=== PATIENT | male | born 1940 | race Caucasian/White ===

== ENCOUNTER 2021-04-21 10:28 | Outpatient (REF) | payer MEDICARE, SELFPAY ==
[2021-04-21 13:34] LABS: MANUAL DIFF FLAG NO
[2021-04-21 13:42] LABS: Basophils Absolute Auto 0.1 X10*3/uL (0.0-0.2); Basophils Percent Auto 0.9 % (0-2); Eosinophils Absolute Auto 0.2 X10*3/uL (0.0-0.4); Eosinophils Percent Auto 3.9 % (0-4); Hematocrit 44.6 % (42-52); Imm Gran Abs Auto 0.01 X10*3/uL (0.00-0.03); Imm Gran Pct Auto 0.2 % (0.0-0.4); Lymphocytes Absolute Auto 1.2 X10*3/uL (1.2-4.9); Lymphocytes Percent Auto 21.3 % (20-40); Mean Corpuscular HGB Conc 33.6 g/dl (31.0-36.0); Mean Corpuscular Hemoglobin 30.1 pg (27.0-33.0); Mean Corpuscular Volume 89.4 fL (80-98); Mean Platelet Volume 9.8 fL (9.4-12.4); Monocytes Absolute Auto 0.7 X10*3/uL (0.1-1.2); Monocytes Percent Auto 11.9 % (2-11); Neutrophils Absolute Auto 3.5 X10*3/uL (2.0-8.3); Neutrophils Percent Auto 61.8 % (45-73); Platelet Count 289 X10*3/uL (160-400); Red Blood Count 4.99 X10*6/uL (4.60-5.80); Red Cell Distribution Width 13.4 % (11.0-16.0); White Blood Count 5.6 X10*3/uL (4.8-10.8)
[2021-04-21 14:11] LABS: Alanine Aminotransferase 33 U/L (0-40); Albumin Level 4.2 g/dL (3.5-5.0); Alkaline Phosphatase 118 U/L (39-117); Anion Gap 13 (12-20); Aspartate Amino Transferase 36 U/L (5-37); Bilirubin Total 0.9 mg/dL (0.0-1.0); Blood Urea Nitrogen 25 mg/dL (9-16); Calcium 9.1 mg/dL (8.4-10.2); Carbon Dioxide 27 mmol/L (22-29); Chloride 105 mmol/L (96-108); Cholesterol 162 mg/dL; Estimated Glomerular Filt Rate > 60; Glucose Fasting 95 mg/dL (60-99); HDL Cholesterol 52 mg/dL; LDL Cholesterol Calculated 97 mg/dl; Sodium 141 mmol/L (135-145); Total Protein 6.7 g/dL (6.5-8.0); Triglycerides 66 mg/dL
[2021-04-21 14:33] LABS: TSH reflex Free T4 2.48 uIU/mL (0.32-4.0)
== END 2021-04-21 10:29 | disposition home or self-care (01) ==
LOC: HO.10HDL 10:28
PROVIDERS: Visit Provider Nurse Practitioner Family
DX: Z13.1 Encounter for screening for diabetes mellitus (principal); E78.5 Hyperlipidemia, unspecified; I10 Essential (primary) hypertension
CPT/HCPCS: 36415; 80053; 80061; 84443; 85025

== ENCOUNTER 2021-08-10 11:07 | Outpatient (REF) | payer MEDICARE, SELFPAY ==
[2021-08-10 13:40] LABS: MANUAL DIFF FLAG NO
[2021-08-10 13:50] LABS: Basophils Absolute Auto 0.1 X10*3/uL (0.0-0.2); Basophils Percent Auto 0.8 % (0-2); Eosinophils Absolute Auto 0.2 X10*3/uL (0.0-0.4); Hematocrit 44.6 % (42-52); Imm Gran Abs Auto 0.02 X10*3/uL (0.00-0.03); Imm Gran Pct Auto 0.3 % (0.0-0.4); Lymphocytes Absolute Auto 1.3 X10*3/uL (1.2-4.9); Lymphocytes Percent Auto 20.7 % (20-40); Mean Corpuscular HGB Conc 33.6 g/dl (31.0-36.0); Mean Corpuscular Hemoglobin 29.9 pg (27.0-33.0); Mean Corpuscular Volume 88.8 fL (80-98); Mean Platelet Volume 9.5 fL (9.4-12.4); Monocytes Absolute Auto 0.6 X10*3/uL (0.1-1.2); Monocytes Percent Auto 9.4 % (2-11); Neutrophils Percent Auto 65.8 % (45-73); Platelet Count 262 X10*3/uL (160-400); Red Blood Count 5.02 X10*6/uL (4.60-5.80); Red Cell Distribution Width 13.3 % (11.0-16.0); White Blood Count 6.1 X10*3/uL (4.8-10.8)
[2021-08-10 13:58] LABS: Alanine Aminotransferase 28 U/L (0-40); Alkaline Phosphatase 105 U/L (39-117); Anion Gap 14 (12-20); Aspartate Amino Transferase 31 U/L (5-37); Bilirubin Total 0.6 mg/dL (0.0-1.0); Blood Urea Nitrogen 17 mg/dL (9-16); Carbon Dioxide 26 mmol/L (22-29); Chloride 104 mmol/L (96-108); Cholesterol 170 mg/dL; Estimated Glomerular Filt Rate > 60; Glucose Fasting 97 mg/dL (60-99); HDL Cholesterol 45 mg/dL; LDL Cholesterol Calculated 108 mg/dl; Potassium 3.9 mmol/L (3.3-5.1); Sodium 140 mmol/L (135-145); Total Protein 6.4 g/dL (6.5-8.0); Triglycerides 86 mg/dL
[2021-08-10 14:22] LABS: Thyroid Stimulating Hormone 3.82 uIU/mL (0.32-4.0)
== END 2021-08-10 11:08 | disposition home or self-care (01) ==
LOC: HO.10HDL 11:07
PROVIDERS: Visit Provider Internal Medicine
DX: Z00.00 Encounter for general adult medical examination without abnormal findings (principal); E11.9 Type 2 diabetes mellitus without complications; E03.9 Hypothyroidism, unspecified
CPT/HCPCS: 36415; 80053; 80061; 84443; 85025

== ENCOUNTER 2021-08-20 10:16 | Outpatient (REF) | payer MEDICARE, SELFPAY ==
--- NOTE | ~2021-08-20 | XR_ITS ---
EXAMINATION: XR LUMBOSACRAL SPINE CLINICAL INFORMATION: Dorsalgia COMPARISON: None TECHNIQUE: Three views of the lumbosacral spine. FINDINGS: No fracture or subluxation. Mild scoliotic curvature of the spine. Vertebral body height and alignment otherwise maintained. Diffuse disc space narrowing with endplate sclerosis and prominent osteophyte formation. Multilevel vacuum disc phenomenon. Multilevel facet arthropathy. The sacroiliac joints are symmetric. The sacrum appears intact. Nonobstructive bowel gas pattern. 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
== END 2021-08-20 10:17 | disposition home or self-care (01) ==
LOC: HO.XRAY 10:16
PROVIDERS: PCP Internal Medicine; Visit Provider Internal Medicine
DX: M54.9 Dorsalgia, unspecified (principal)
CPT/HCPCS: 72100

== ENCOUNTER 2021-12-29 09:46 | Outpatient (REF) | payer MEDICARE, SELFPAY ==
[2021-12-29 10:38] LABS: MANUAL DIFF FLAG NO
[2021-12-29 10:47] LABS: Basophils Absolute Auto 0.1 X10*3/uL (0.0-0.2); Basophils Percent Auto 1.1 % (0-2); Eosinophils Absolute Auto 0.1 X10*3/uL (0.0-0.4); Eosinophils Percent Auto 2.1 % (0-4); Hematocrit 44.9 % (42.0-52.0); Imm Gran Abs Auto 0.01 X10*3/uL (0.00-0.03); Imm Gran Pct Auto 0.2 % (0.0-0.4); Lymphocytes Absolute Auto 1.1 X10*3/uL (1.2-4.9); Lymphocytes Percent Auto 20.1 % (20-40); Mean Corpuscular HGB Conc 33.4 g/dl (31.0-36.0); Mean Corpuscular Hemoglobin 29.8 pg (27.0-33.0); Mean Corpuscular Volume 89.3 fL (80.0-98.0); Mean Platelet Volume 9.6 fL (9.4-12.4); Monocytes Absolute Auto 0.6 X10*3/uL (0.1-1.2); Neutrophils Absolute Auto 3.5 x10*3/uL (2.0-8.3); Neutrophils Percent Auto 65.5 % (45-73); Platelet Count 229 X10*3/uL (160-400); Red Blood Count 5.03 X10*6/uL (4.60-5.80); White Blood Count 5.3 X10*3/uL (4.8-10.8)
[2021-12-29 11:03] LABS: Alanine Aminotransferase 38 U/L (0-40); Alkaline Phosphatase 98 U/L (39-117); Anion Gap 10 (12-20); Aspartate Amino Transferase 37 U/L (5-37); Bilirubin Total 0.7 mg/dL (0.0-1.0); Blood Urea Nitrogen 26 mg/dL (9-16); Calcium 9.2 mg/dL (8.4-10.2); Carbon Dioxide 29 mmol/L (22-29); Chloride 105 mmol/L (96-108); Cholesterol 154 mg/dL; Estimated Glomerular Filt Rate > 60; Glucose Fasting 103 mg/dL (60-99); HDL Cholesterol 44 mg/dL; LDL Cholesterol Calculated 98 mg/dl; Potassium 3.9 mmol/L (3.3-5.1); Sodium 140 mmol/L (135-145); Total Protein 6.4 g/dL (6.5-8.0); Triglycerides 63 mg/dL
[2021-12-29 11:25] LABS: Thyroid Stimulating Hormone 3.04 uIU/mL (0.32-4.0)
== END 2021-12-29 09:47 | disposition home or self-care (01) ==
LOC: HO.10HDL 09:46
PROVIDERS: Visit Provider Internal Medicine
DX: Z00.00 Encounter for general adult medical examination without abnormal findings (principal); Z13.0 Encounter for screening for diseases of the blood and blood-forming organs and certain disorders involving the immune mechanism
CPT/HCPCS: 36415; 80053; 80061; 84443; 85025

== ENCOUNTER 2022-02-11 14:00 | Outpatient (RCR) | payer MEDICARE, SELFPAY ==
--- NOTE | 2021-12-30 07:59 | MHC.PT.EP ---
[facility] [place] Office [place] Office [place] Office [address] [place] [address] [phone] F: [phone] F: [phone] F: [phone] F: [phone] Physical Therapy Plan of Care Date of Evaluation: Date of Surgery: n/a Diagnosis: Dorsalgia Assessment: Patient is an 81 year old R handed male who presents with s/s consistent with dorsalgia. He does not work but still lives Independently while his family takes care of most of his meal prep. 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 Current impairments include pain, posture, ROM, strength, activity tolerance and functional mobility. Functional limitations include decreased ability to transfer, stand and walk longer than 3 minutes. Patient is motivated with good rehab potential. Skilled PT will address impairments and functional limitations in order to achieve goals. Frequency and Duration: The patient will be seen 2x/week for 5 weeks Short Term Goals: I with HEP - 2 weeks Able to walk > 5 minutes without deteriorating posture - 3 weeks Dog Races Manager Goals: Able to walk > 8 minutes without rest or deteriorating posture - 5 weeks Strength 4/5 grossly in LE - 5 weeks lumbar rotation - 50% without pain - 5 weeks Treatment Plan: Modalities to reduce pain, spasms and effusion. Manual therapy to restore motion and function. Therapeutic exercise to improve strength and flexibility. Neuromuscular re-education for posture and balance. Therapeutic activities to return to functional activities of daily living. Electronically signed by: Trino Dugan, PT Please sign and return to therapist. Thank you for your referral.
--- NOTE | 2022-07-15 09:09 | MHC.PT.DC ---
[facility] [place] Office [place] Office [place] Office [address] [place] [address] [phone] F: [phone] F: [phone] F: [phone] F: [phone] Physical Therapy Discharge Report Diagnosis: Dorsalgia Date of Surgery: n/a Date of Evaluation: 12/29/21 Date of Discharge: 04/16/22 Treatments to Date: 12 Cancellations to Date: No Shows to Date: Discharge Status: Improved Function Independent with HEP Discharge Summary: 02/11/22: pt progressed very well over the course of skilled PT. he currently is I with HEP. his rotation is 75% pain free and his hip strength is 4/5 grossly. He progressed towards his walking goal and is motivated to continue exclusively with HEP. 02/09/22: updated HEP. reviewed this with him as well as compliance intentions. we will plan to d/c to HEP NV. 02/04/22: pt progressing very well overall. still limited with walking at times however due to discomfort. 02/02/22: pt with reduced s/s overall. progressing well with walking longer distances. 01/28/22: activity tolerance continues to progress. improved tolerance to walking. reduced discomfort during amb. 01/25/22: pt progressing well with ROM, stretching intervention. continue to progress as tolerated. 01/21/22: pt with no discomfort. has been able to perform ex with improved carryover and independence. improved upright posture with amb and standing ex. 01/19/22: pt has been improving upright posture with daily activities and has improved mechanics with standing ex. 01/14/22: pt noting improvement with daily activity related to tolerance and upright posture. he notes no pain but some soreness intermittently throughout the day. 01/12/22: pt progressing very well with program. improved endurance on feet. reduced discomfort with ADLs. still fatigues around 4 minutes of standing however. 01/08/22: pt has been progressing with improved activity tolerance. inconsistent pain progress however characterized by some good, some bad days. 01/05/22: responding well to PT. compliant with HEP. no adverse reactions. 12/31/21: progressed activities today with no adverse reactions. pt notes feeling more upright during daily activities. educated in seated posture to sit upright on ischial tuberosities. Patient is an 81 year old R handed male who presents with s/s consistent with dorsalgia. He does not work but still lives Independently while his family takes care of most of his meal prep. 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 Current impairments include pain, posture, ROM, strength, activity tolerance and functional mobility. Functional limitations include decreased ability to transfer, stand and walk longer than 3 minutes. Patient is motivated with good rehab potential. Skilled PT will address impairments and functional limitations in order to achieve goals. Electronically signed by: Trino Dugan, PT Please sign and return to therapist. Thank you for your referral.
== END 2022-07-15 09:10 | disposition home or self-care (01) ==
LOC: HO.PTCHIC 14:00
PROVIDERS: PCP Internal Medicine; Visit Provider Internal Medicine
DX: M54.9 Dorsalgia, unspecified (principal)
CPT/HCPCS: 97110; 97162

== ENCOUNTER 2022-12-23 14:05 | Outpatient (REF) | payer MEDICARE, SELFPAY ==
[2022-12-23 16:44] LABS: MANUAL DIFF FLAG NO
[2022-12-23 16:47] LABS: Basophils Absolute Auto 0.1 X10*3/uL (0.0-0.2); Basophils Percent Auto 0.9 % (0-2); Eosinophils Absolute Auto 0.2 X10*3/uL (0.0-0.4); Eosinophils Percent Auto 3.2 % (0-4); Hematocrit 49.6 % (42.0-52.0); Hemoglobin 16.3 g/dl (14.0-18.0); Imm Gran Abs Auto 0.02 X10*3/uL (0.00-0.03); Imm Gran Pct Auto 0.4 % (0.0-0.4); Lymphocytes Absolute Auto 1.4 X10*3/uL (1.2-4.9); Mean Corpuscular HGB Conc 32.9 g/dl (31.0-36.0); Mean Corpuscular Hemoglobin 30.4 pg (27.0-33.0); Mean Corpuscular Volume 92.4 fL (80.0-98.0); Mean Platelet Volume 9.7 fL (9.4-12.4); Monocytes Absolute Auto 0.6 X10*3/uL (0.1-1.2); Neutrophils Percent Auto 56.5 % (45-73); Platelet Count 251 X10*3/uL (160-400); Red Blood Count 5.37 X10*6/uL (4.60-5.80); Red Cell Distribution Width 13.3 % (11.0-16.0); White Blood Count 5.3 X10*3/uL (4.8-10.8)
[2022-12-23 17:11] LABS: Alanine Aminotransferase 31 U/L (0-40); Albumin Level 4.2 g/dL (3.5-5.0); Alkaline Phosphatase 121 U/L (39-117); Anion Gap 14 (12-20); Aspartate Amino Transferase 34 U/L (5-37); Bilirubin Total 0.9 mg/dL (0.0-1.0); Blood Urea Nitrogen 21 mg/dL (9-16); Calcium 9.6 mg/dL (8.4-10.2); Carbon Dioxide 29 mmol/L (22-29); Chloride 103 mmol/L (96-108); Cholesterol 180 mg/dL; Estimated Glomerular Filt Rate > 60; Glucose Fasting 95 mg/dL (60-99); HDL Cholesterol 48 mg/dL; LDL Cholesterol Calculated 114 mg/dl; Potassium 4.7 mmol/L (3.3-5.1); Sodium 141 mmol/L (135-145); Total Protein 6.8 g/dL (6.5-8.0); Triglycerides 92 mg/dL
[2022-12-23 17:26] LABS: Thyroid Stimulating Hormone 2.44 uIU/mL (0.32-4.0)
== END 2022-12-23 14:06 | disposition home or self-care (01) ==
LOC: HO.HMGCLDS 14:05
PROVIDERS: PCP Internal Medicine; Visit Provider Internal Medicine
DX: E03.9 Hypothyroidism, unspecified (principal); E78.5 Hyperlipidemia, unspecified; I10 Essential (primary) hypertension; Z13.0 Encounter for screening for diseases of the blood and blood-forming organs and certain disorders involving the immune mechanism
CPT/HCPCS: 36415; 80053; 80061; 84443; 85025

== ENCOUNTER 2023-08-02 10:30 | Outpatient (AMB) | payer MEDICARE, SELFPAY ==
[2023-08-02 10:31] VITALS: BP 142/90; PULSE 65; O2SAT 96; BMI 29.7
--- NOTE | 2023-08-02 10:31 | MHC.PC.OV ---
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 Accompanied by: Self / Same As Patient Allergies pollen extracts [POLLEN] Allergy (Unknown, Verified 08/02/23 10:32) WATERY EYES, RUNNY NOSE pollen Allergy (Unknown, Uncoded 08/02/23 10:32) hives Medication List - Last Reconciled 08/02/23 by Mike Lewis MD atorvastatin 10 mg PO DAILY citalopram (Celexa) 1 tab in am and .5 tab in pm PO 2 times a day; clonazepam 0.5 mg PO BID 90 days hydrochlorothiazide 25 mg PO DAILY 90 days losartan 50 mg PO DAILY Tobacco use date assessed: 01/27/23 Fall risk assessment: No Falls in past year Last assessed Fall Risk: 08/02/23 Dental Screening Dental Screen Date: 08/02/23 Did you have a dental visit in the last 12 months?: No Did you have a dental problem in the last 6 months where you did not have access to dental care?: No Was dental information given to patient?: Patient has dentist HPI 6 month f/u HPI Details hyperlipidemia htn anddepression on rx; doing well; compliant [facility] Medical History Obesity Deafness in left ear Screening for diabetes mellitus Surgical History History of colonoscopy History of cardiac radiofrequency ablation History of cataract surgery H/O hernia repair Family History Paternal Grandfather Stomach cancer Father Heart failure Mother Diabetes Social History Housing: House Alcohol intake: never Patient Tobacco Use Status: Never used Tobacco e-Cigarette/Vaping Use: Never Used Second Hand Smoke Exposure: No service: No Current occupational status: retired Current occupational exposures/hazards: No Cognitive needs: No Hearing needs: Yes Vision needs: Yes Questionnaire PHQ-9 Over the last 2 weeks, how often have you been bothered by any of the following problems? 1. Little interest or pleasure in doing things: not at all 2. Feeling down, depressed, or hopeless: not at all 3. Trouble falling or staying asleep, or sleeping too much: not at all 4. Feeling tired or having little energy: not at all 5. Poor appetite or overeating: not at all 6. Feeling bad about yourself - or that you are a failure or have let yourself or your family down: not at all 7. Trouble concentrating on things, such as reading the newspaper or watching television: not at all 8. Moving or speaking so slowly that other people could have noticed. Or the opposite - being so fidgety or restless that you have been moving around a lot more than usual: not at all 9. Thoughts that you would be better off or of hurting yourself in some way: not at all Total score: 0 Depression Screening Interpretation: Negative Depression Screening Done: Yes 80777 - PHQ-9 Billing: Yes Source: Developed by Drs. Aldair Isabel, Carmelo Quintero and colleagues, with an educational ruby from [employer] Thrive Questionnaire Date Thrive assessed: 01/27/23 AUDIT C Alcohol Use Questionnaire (AUDIT-C) 1. How often do you have a drink containing alcohol?: Never Total Score: 0 Score Reviewed/Action Taken: Yes KISHAN-7 AMB Questionnaire KISHAN-7 Date KISHAN - 7 assessed: 01/27/23 Source: Developed by Drs. Aldair Isabel, Carmelo Quintero and colleagues, with an educational ruby from [employer] Review of Systems Const Denies chills, Denies headache(s) and Denies weight loss ENT Denies headache(s) Card Denies chest pain, Denies syncope, Denies irregular heart rhythm and Denies dyspnea Resp Denies chest congestion, Denies cough and Denies dyspnea GI Denies abdominal pain, Denies change in stool character, Denies nausea and Denies vomiting Musc Denies deformity and Denies joint swelling Neuro Denies syncope and Denies headache(s) Physical exam (Primary Care) Vital Signs: Last Vital Signs Pulse 65 08/02/23 10:31 BP 142/90 H 08/02/23 10:31 Pulse Ox 96 08/02/23 10:31 Oxygen Delivery Method Room Air 08/02/23 10:31 BMI result Body Mass Index 29.7 Tobacco/Smoking Status: Tobacco use Status Tobacco use date assessed 01/27/23 08/02/23 10:32 Patient Tobacco Use Status Never used Tobacco 08/02/23 10:32 e-Cigarette/Vaping Use Never Used 08/02/23 10:32 PHQ-9: PHQ-9 Score PHQ-9: Total score 0 08/02/23 10:46 Depression Screening Interpretation: Negative Thrive Assessment: Date of Thrive Assessment Date Thrive assessed 01/27/23 08/02/23 10:32 Const General: cooperative, comfortable, no acute distress and alert Neck Neck: Yes no lymphadenopathy Thyroid: Thyroid normal Resp Effort & Inspection: normal respiratory effort Auscultation: clear to auscultation bilaterally Percussion: percussion normal Cardio Jugular venous distension: no JVD Palpation: normal PMI Rate: regular rate Rhythm: regular rhythm Heart sounds: S1 normal heart sound present and S2 normal heart sound present GI Inspection: Yes normal to inspection Palpation (GI): No hepatosplenomegaly present Skin General skin exam: no rashes or lesions noted Extrem General: Yes no clubbing, cyanosis or edema Assessment and Plan Assessment & Plan (1) Hyperlipidemia: Code(s): E78.5 - Hyperlipidemia, unspecified Qualifiers: Hyperlipidemia type: unspecified Qualified Code(s): E78.5 - Hyperlipidemia, unspecified Plan: stable; same rx (2) Hypertension: Code(s): I10 - Essential (primary) hypertension Qualifiers: Hypertension type: unspecified Qualified Code(s): I10 - Essential (primary) hypertension Plan: stable; same rx (3) Anxiety: Code(s): F41.9 - Anxiety disorder, unspecified Plan: stable Medications: Refilled atorvastatin 10 mg PO DAILY 90 tabs 8RF hydrochlorothiazide 25 mg PO DAILY 90 days 90 tabs 8RF losartan 50 mg PO DAILY 90 tabs 1RF clonazepam 0.5 mg PO BID 90 days 180 tabs 5RF citalopram (Celexa) 1 tab in am and .5 tab in pm PO 2 times a day; 135 tabs 1RF Coding Level of Care Code Est Pt Level 4 (87507) Diagnoses Hyperlipidemia, unspecified hyperlipidemia type E78.5 Hyperlipidemia type: unspecified Hypertension, unspecified type I10 Hypertension type: unspecified Anxiety F41.9
== END 2023-08-02 11:05 | disposition home or self-care (01) ==
PROVIDERS: Visit Provider Internal Medicine
DX: E78.5 Hyperlipidemia, unspecified (principal); I10 Essential (primary) hypertension; F41.9 Anxiety disorder, unspecified; Z23 Encounter for immunization
CPT/HCPCS: 90471; 90686; 99214

== ENCOUNTER 2023-08-03 10:35 | Outpatient (REF) | payer MEDICARE, SELFPAY | END 2023-08-03 10:36 | disposition home or self-care (01) | LOC: HO.HMGCLDS 10:35 | PROVIDERS: PCP Internal Medicine; Visit Provider Internal Medicine | DX: N28.9 Disorder of kidney and ureter, unspecified (principal); D64.9 Anemia, unspecified; E78.5 Hyperlipidemia, unspecified | CPT/HCPCS: 36415; 80053; 80061; 85025 ==

== ENCOUNTER 2024-01-27 08:35 | Outpatient (REF) | payer MEDICARE, SELFPAY ==
[2024-01-27 10:39] LABS: MANUAL DIFF FLAG NO
[2024-01-27 10:51] LABS: Basophils Absolute Auto 0.1 X10*3/uL (0.0-0.2); Basophils Percent Auto 0.8 % (0-2); Eosinophils Absolute Auto 0.3 X10*3/uL (0.0-0.4); Eosinophils Percent Auto 4.6 % (0-4); Hematocrit 47.6 % (42.0-52.0); Hemoglobin 15.7 g/dl (14.0-18.0); Imm Gran Abs Auto 0.01 X10*3/uL (0.00-0.03); Imm Gran Pct Auto 0.2 % (0.0-0.4); Lymphocytes Absolute Auto 1.4 X10*3/uL (1.2-4.9); Lymphocytes Percent Auto 23.8 % (20-40); Mean Corpuscular Hemoglobin 29.9 pg (27.0-33.0); Mean Corpuscular Volume 90.7 fL (80.0-98.0); Mean Platelet Volume 9.5 fL (9.4-12.4); Monocytes Absolute Auto 0.6 X10*3/uL (0.1-1.2); Monocytes Percent Auto 10.8 % (2-11); Neutrophils Absolute Auto 3.6 x10*3/uL (2.0-8.3); Neutrophils Percent Auto 59.8 % (45-73); Platelet Count 264 X10*3/uL (160-400); Red Blood Count 5.25 X10*6/uL (4.60-5.80); Red Cell Distribution Width 13.2 % (11.0-16.0); White Blood Count 5.9 X10*3/uL (4.8-10.8)
[2024-01-27 11:14] LABS: Alanine Aminotransferase 40 U/L (0-40); Albumin Level 3.9 g/dL (3.5-5.0); Alkaline Phosphatase 113 U/L (39-117); Anion Gap 12 (12-20); Aspartate Amino Transferase 38 U/L (5-37); Bilirubin Total 0.6 mg/dL (0.0-1.0); Blood Urea Nitrogen 24 mg/dL (9-16); Calcium 9.3 mg/dL (8.4-10.2); Carbon Dioxide 29 mmol/L (22-29); Chloride 104 mmol/L (96-108); Cholesterol 161 mg/dL (<200); Estimated Glomerular Filt Rate > 60; Glucose Fasting 102 mg/dL (60-99); HDL Cholesterol 45 mg/dL (>40); LDL Cholesterol Calculated 97 mg/dL (<100); Potassium 4.2 mmol/L (3.3-5.1); Sodium 141 mmol/L (135-145); Total Protein 6.7 g/dL (6.5-8.0); Triglycerides 95 mg/dL (<150)
== END 2024-01-27 08:36 | disposition home or self-care (01) ==
LOC: HO.HMGCLDS 08:35
PROVIDERS: PCP Internal Medicine; Visit Provider Internal Medicine
DX: D64.9 Anemia, unspecified (principal); N28.9 Disorder of kidney and ureter, unspecified; E78.5 Hyperlipidemia, unspecified
CPT/HCPCS: 36415; 80053; 80061; 85025

== ENCOUNTER 2024-02-07 10:39 | Outpatient (AMB) | payer MEDICARE, SELFPAY ==
[2024-02-07 10:41] VITALS: BP 152/88; PULSE 87; O2SAT 98; BMI 30.4
--- NOTE | 2024-02-07 10:41 | A.OFFPC_ITS ---
Vital Signs 02/07/24 10:41 Height 5 ft 6.5 in Weight 191 lb BMI 30.4 BP 152/88 H Blood Pressure Location Lt brachial Position Sitting Pulse 87 Pulse Source Pulse Oximeter Pulse Oximetry (%) 98 Oxygen Delivery Method Room Air Intake Visit Reasons: 6 month f/u Intake Note: Patient is here to follow up on 6 months Special Inspector Required: No Allergies pollen extracts [POLLEN] Allergy (Unknown, Verified 02/07/24 10:41) WATERY EYES, RUNNY NOSE pollen Allergy (Unknown, Uncoded 02/07/24 10:41) hives Medication List - Last Reconciled 02/07/24 by Mike Lewis MD atorvastatin 10 mg PO DAILY citalopram (Celexa) 1 tab in am and .5 tab in pm PO 2 times a day; clonazepam 0.5 mg PO BID 90 days hydrochlorothiazide 25 mg PO DAILY 90 days losartan 50 mg PO DAILY Tobacco use date assessed: 02/07/24 Fall risk assessment: No Falls in past year Last assessed Fall Risk: 02/07/24 Dental Screening Dental Screen Date: 02/07/24 Did you have a dental visit in the last 12 months?: No Did you have a dental problem in the last 6 months where you did not have access to dental care?: No HPI 6 month f/u HPI Details hyperlip htn and anxiety on rx; doing well; com[liant [facility] Medical History Obesity Deafness in left ear Screening for diabetes mellitus Surgical History History of colonoscopy History of cardiac radiofrequency ablation History of cataract surgery H/O hernia repair Family History Paternal Grandfather Stomach cancer Father Heart failure Mother Diabetes Social History Housing: House Alcohol intake: never Patient Tobacco Use Status: Never used Tobacco e-Cigarette/Vaping Use: Never Used Second Hand Smoke Exposure: No service: No Current occupational status: retired Current occupational exposures/hazards: No Cognitive needs: No Hearing needs: Yes Vision needs: Yes Questionnaire Thrive Questionnaire Date Thrive assessed: 02/07/24 I am a: Patient What is your living situation today?: I have a steady place to live Within the past 12 months, did the food you bought not last and you didn't have the money to get more?: Never true Within the past 12 months, did you worry whether your food would run out before you got money to buy more?: Never true Do you have trouble paying for medicines?: No Do you have trouble getting transportation to medical appointments?: No Do you have trouble paying your heating and electricity bill?: No Do you have trouble taking care of your child, family member or friend?: No Do you have trouble with day-to-day activities such as bathing, preparing meals, shopping, managing finances, etc.?: No Are you currently unemployed and looking for a job?: No Are you interested in more education?: No Please select the resources that you would like help with: None Currently or been in a relationship where the following occur: no concerns reported THRIVE Score: 0 AUDIT C Alcohol Use Questionnaire (AUDIT-C) 1. How often do you have a drink containing alcohol?: Never 3. How often do you have six or more drinks on one occasion?: Never Total Score: 0 Score Reviewed/Action Taken: Yes KISHAN-7 AMB Questionnaire KISHAN-7 Date KISHAN - 7 assessed: 02/07/24 Source: Developed by Drs. Aldair Isabel, Nitza Loya, Carmelo Colindres and colleagues, with an educational ruby from [employer]. Review of Systems Const Denies chills, Denies headache(s) and Denies weight loss ENT Denies headache(s) Card Denies chest pain, Denies syncope, Denies irregular heart rhythm and Denies dyspnea Resp Denies chest congestion, Denies cough and Denies dyspnea GI Denies abdominal pain, Denies change in stool character, Denies nausea and Denies vomiting Musc Denies deformity and Denies joint swelling Neuro Denies syncope and Denies headache(s) Physical exam (Primary Care) Vital Signs: Last Vital Signs Pulse 87 02/07/24 10:41 BP 152/88 H 02/07/24 10:41 Pulse Ox 98 02/07/24 10:41 Oxygen Delivery Method Room Air 02/07/24 10:41 BMI result Body Mass Index 30.4 Tobacco/Smoking Status: Tobacco use Status Tobacco use date assessed 02/07/24 02/07/24 10:47 Patient Tobacco Use Status Never used Tobacco 02/07/24 10:47 e-Cigarette/Vaping Use Never Used 02/07/24 10:47 Thrive Assessment: Date of Thrive Assessment Date Thrive assessed 02/07/24 02/07/24 10:47 Currently or been in a relationship where the following occur: no concerns reported Const General: cooperative, comfortable, no acute distress and alert Neck Neck: Yes no lymphadenopathy Thyroid: Thyroid normal Resp Effort & Inspection: normal respiratory effort Auscultation: clear to auscultation bilaterally Percussion: percussion normal Cardio Jugular venous distension: no JVD Palpation: normal PMI Rate: regular rate Rhythm: regular rhythm Heart sounds: S1 normal heart sound present and S2 normal heart sound present GI Inspection: Yes normal to inspection Palpation (GI): No hepatosplenomegaly present Skin General skin exam: no rashes or lesions noted Extrem General: Yes no clubbing, cyanosis or edema Assessment and Plan Assessment & Plan (1) Anxiety: Code(s): F41.9 - Anxiety disorder, unspecified Plan: stable; same rx (2) Hyperlipidemia: Code(s): E78.5 - Hyperlipidemia, unspecified Qualifiers: Hyperlipidemia type: unspecified Qualified Code(s): E78.5 - Hyperlipidemia, unspecified Plan: stable; same rx (3) Hypertension: Code(s): I10 - Essential (primary) hypertension Qualifiers: Hypertension type: unspecified Qualified Code(s): I10 - Essential (primary) hypertension Plan: stable; same rx Orders: Orders Lipid Panel Today Z13.220 - Encounter for screening for lipoid disorders Medications: Refilled citalopram (Celexa) 1 tab in am and .5 tab in pm PO 2 times a day; 135 tabs 1RF clonazepam 0.5 mg PO BID 90 days 180 tabs 5RF losartan 50 mg PO DAILY 90 tabs 1RF atorvastatin 10 mg PO DAILY 90 tabs 8RF hydrochlorothiazide 25 mg PO DAILY 90 days 90 tabs 8RF Coding Level of Care Code Est Pt Level 4 (57913) Diagnoses Anxiety F41.9 Hyperlipidemia, unspecified hyperlipidemia type E78.5 Hyperlipidemia type: unspecified Hypertension, unspecified type I10 Hypertension type: unspecified
== END 2024-02-07 11:09 | disposition home or self-care (01) ==
PROVIDERS: PCP Internal Medicine; Visit Provider Internal Medicine
DX: F41.9 Anxiety disorder, unspecified (principal); E78.5 Hyperlipidemia, unspecified; I10 Essential (primary) hypertension
CPT/HCPCS: 99214

== ENCOUNTER 2024-08-13 10:34 | Outpatient (AMB) | payer MEDICARE, SELFPAY ==
[2024-08-13 10:38] VITALS: BP 144/76; PULSE 68; O2SAT 97; BMI 29.1
--- NOTE | 2024-08-13 10:38 | MHC.PC.OV ---
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 Accompanied by: Spouse Allergies pollen extracts [POLLEN] Allergy (Unknown, Verified 08/13/24 10:40) WATERY EYES, RUNNY NOSE pollen Allergy (Unknown, Uncoded 08/13/24 10:40) hives Medication List - Last Reconciled 08/13/24 by Mike Lewis MD atorvastatin 10 mg PO DAILY citalopram (Celexa) 1 tab in am and .5 tab in pm PO 2 times a day; clonazepam 0.5 mg PO BID 90 days hydrochlorothiazide 25 mg PO DAILY 90 days losartan 50 mg PO DAILY Tobacco use date assessed: 02/07/24 Fall risk assessment: No Falls in past year Last assessed Fall Risk: 08/13/24 Dental Screening Dental Screen Date: 02/07/24 HPI 6mof\u HPI Details hypertension and hyperlipidemia on rx; doing well; compliant [facility] Medical History Obesity Deafness in left ear Screening for diabetes mellitus Surgical History History of colonoscopy History of cardiac radiofrequency ablation History of cataract surgery H/O hernia repair Family History Paternal Grandfather Stomach cancer Father Heart failure Mother Diabetes Social History Housing: House Alcohol intake: never Patient Tobacco Use Status: Never used Tobacco Tobacco use type: Cigarette e-Cigarette/Vaping Use: Never Used Second Hand Smoke Exposure: No service: No Current occupational status: retired Current occupational exposures/hazards: No Cognitive needs: No Hearing needs: Yes Vision needs: Yes Questionnaire Thrive Questionnaire Date Thrive assessed: 02/07/24 KISHAN-7 AMB Questionnaire KISHAN-7 Date KISHAN - 7 assessed: 02/07/24 Source: Developed by Drs. Aldair Isabel, Nitza Loya, Carmelo Colindres and colleagues, with an educational ruby from [employer]. Review of Systems Const Denies chills, Denies headache(s) and Denies weight loss ENT Denies headache(s) Card Denies chest pain, Denies syncope, Denies irregular heart rhythm and Denies dyspnea Resp Denies chest congestion, Denies cough and Denies dyspnea GI Denies abdominal pain, Denies change in stool character, Denies nausea and Denies vomiting Musc Denies deformity and Denies joint swelling Neuro Denies syncope and Denies headache(s) Physical exam (Primary Care) Vital Signs: Last Vital Signs Pulse 68 08/13/24 10:38 BP 144/76 H 08/13/24 10:38 Pulse Ox 97 08/13/24 10:38 Oxygen Delivery Method Room Air 08/13/24 10:38 BMI result Body Mass Index 29.1 Tobacco/Smoking Status: Tobacco use Status Tobacco use date assessed 02/07/24 08/13/24 10:43 Patient Tobacco Use Status Never used Tobacco 08/13/24 10:43 Tobacco use type Cigarette 08/13/24 10:43 e-Cigarette/Vaping Use Never Used 08/13/24 10:43 Thrive Assessment: Date of Thrive Assessment Date Thrive assessed 02/07/24 08/13/24 10:43 Const General: cooperative, comfortable, no acute distress and alert Neck Neck: Yes no lymphadenopathy Thyroid: Thyroid normal Resp Effort & Inspection: normal respiratory effort Auscultation: clear to auscultation bilaterally Percussion: percussion normal Cardio Jugular venous distension: no JVD Palpation: normal PMI Rate: regular rate Rhythm: regular rhythm Heart sounds: S1 normal heart sound present and S2 normal heart sound present GI Inspection: Yes normal to inspection Palpation (GI): No hepatosplenomegaly present Skin General skin exam: no rashes or lesions noted Extrem General: Yes no clubbing, cyanosis or edema Coding Level of Care Code Est Pt Level 3 (86308) Diagnoses Hyperlipidemia, unspecified hyperlipidemia type E78.5 Hyperlipidemia type: unspecified Hypertension, unspecified type I10 Hypertension type: unspecified Assessment & Plan Assessment & Plan (1) Hyperlipidemia: Code(s): E78.5 - Hyperlipidemia, unspecified Category: Medical Qualifiers: Hyperlipidemia type: unspecified Qualified Code(s): E78.5 - Hyperlipidemia, unspecified Plan: stable; same rx (2) Hypertension: Code(s): I10 - Essential (primary) hypertension Category: Medical Qualifiers: Hypertension type: unspecified Qualified Code(s): I10 - Essential (primary) hypertension Plan: stable; same rx Orders: Orders Lipid Panel Today Z13.220 - Encounter for screening for lipoid disorders
== END 2024-08-13 11:00 | disposition home or self-care (01) ==
PROVIDERS: PCP Internal Medicine; Visit Provider Internal Medicine
DX: E78.5 Hyperlipidemia, unspecified (principal); I10 Essential (primary) hypertension

== ENCOUNTER → 2024-08-13 10:34 | Outpatient (BNVA) | payer MEDICARE, SELFPAY | PROVIDERS: PCP Internal Medicine; Visit Provider Internal Medicine | DX: E78.5 Hyperlipidemia, unspecified (principal); I10 Essential (primary) hypertension | CPT/HCPCS: 99212 ==

== ENCOUNTER 2024-08-14 08:44 | Outpatient (REF) | payer MEDICARE, SELFPAY ==
[2024-08-14 10:58] LABS: Cholesterol 141 mg/dL (<200); HDL Cholesterol 45 mg/dL (>40); LDL Cholesterol Calculated 85 mg/dL (<100); Triglycerides 55 mg/dL (<150)
== END 2024-08-14 08:45 | disposition home or self-care (01) ==
LOC: HO.HMGCLDS 08:44
PROVIDERS: PCP Internal Medicine; Visit Provider Internal Medicine
DX: Z13.220 Encounter for screening for lipoid disorders (principal)
CPT/HCPCS: 36415; 80061

== ENCOUNTER 2025-04-24 13:24 | Outpatient (AMB) | payer MEDICARE, SELFPAY ==
[2025-04-24 13:32] VITALS: BP 122/88; PULSE 82; TEMP 36.2; O2SAT 97
--- NOTE | 2025-04-24 13:32 | A.OFFPC_ITS ---
Vital Signs 04/24/25 13:32 Height 5 ft 6.5 in Weight 188 lb 8 oz BMI 30.0 BP 122/88 Blood Pressure Location Lt brachial Position Sitting Pulse 82 Pulse Source Pulse Oximeter Temp 97.1 F Temp Source Temporal Artery Scan Pulse Oximetry (%) 97 Oxygen Delivery Method Room Air Intake Visit Reasons: WILLIE from Dr. Lewis 3M Follow Up Accompanied by: Daughter Allergies pollen extracts (POLLEN) Allergy (Unknown, Verified 04/24/25 13:46) WATERY EYES, RUNNY NOSE pollen Allergy (Unknown, Uncoded 04/24/25 13:46) hives Medication List - Last Reconciled 04/24/25 by JESSICA Claros atorvastatin 10 mg PO DAILY cholecalciferol (vitamin D3) 50 mcg PO DAILY citalopram (Celexa) 1 tab in am and .5 tab in pm PO 2 times a day; clonazepam 0.5 mg PO BID 30 days coQ10 (ubiquinol) (Qunol Emeterio CoQ10) 100 mg PO DAILY folic acid 0.4 mg PO DAILY hydrochlorothiazide 25 mg PO DAILY 90 days losartan 50 mg PO DAILY Tobacco use date assessed: 04/24/25 Fall risk assessment: 2 + Falls in past year Last assessed Fall Risk: 04/24/25 Dental Screening Dental Screen Date: 04/24/25 Did you have a dental visit in the last 12 months?: No Did you have a dental problem in the last 6 months where you did not have access to dental care?: No Was dental information given to patient?: Patient declined HPI WILLIE from Dr. Lewis 3M Follow Up HPI Details The patient is an 85-year-old male presenting to transition care from Dr. Lewis, who retired. He is presenting with a follow-up for chronic conditions and medication management. The patient has a history of essential hypertension, which has been managed over the years with medication. He underwent a cardiac ablation approximately 10-12 years ago at [facility] due to ventricular tachycardia, which was initially suspected to be atrial fibrillation. Post-procedure, he was on blood thinners for a year or two, which were discontinued after stabilization. The patient reports significant hearing loss, with only 2% hearing in the left ear and 72% in the right ear. He previously used hearing aids, which are currently broken. He has a history of anxiety and depression, previously managed by a psychiatrist, Dr. Vaughan, who has since retired. Currently, he is not under psychiatric care but continues medication for both conditions. The patient experiences symptoms consistent with allergic rhinitis, including nasal congestion and post-nasal drip, particularly when exposed to pollen. He has not been using allergy medications regularly but is considering trying Flonase again. The patient has osteoarthritis, primarily affecting his neck and hands, causing significant discomfort and impacting his mobility. He uses a cane for support during ambulation, especially when visiting places like [facility]. Gumming Machine Operator, Dr. Javed, said, he should not come back and unless he had issues. He not sure what what was his heart rhythm, but he had and ablation. He was on blood thinners for for awhile because they thought that he had afib, but it turns out to be something differnt anxiety and depression: He was seeing a psychiatrist a while back and they retired and Dr. Lewis took over his treatment. Dr. Pringle hearing loss more pronounce in the left ear, he had 2% on the left and 72% on the right. Reports that he had hearing aids and they broke them and he never replaced them. 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 The patient forward bending/some pain in the lower back. Makes it difficult for him to walk long distance lungs are clear, no sob, no swelling. [facility] Medical History (Updated 05/19/25 @ 17:53 by JESSICA Claros) GERD (gastroesophageal reflux disease) BPH (benign prostatic hyperplasia) Depression Obesity Deafness in left ear Screening for diabetes mellitus Surgical History History of colonoscopy History of cardiac radiofrequency ablation History of cataract surgery H/O hernia repair Family History Paternal Grandfather Stomach cancer Father Heart failure Mother Diabetes Social History Housing: House Alcohol intake: never Patient Tobacco Use Status: Never used Tobacco Tobacco use type: Cigarette e-Cigarette/Vaping Use: Never Used Second Hand Smoke Exposure: No service: No Current occupational status: retired Current occupational exposures/hazards: No Cognitive needs: No Hearing needs: Yes Vision needs: Yes Questionnaire PHQ-9 Over the last 2 weeks, how often have you been bothered by any of the following problems? 1. Little interest or pleasure in doing things: not at all 2. Feeling down, depressed, or hopeless: not at all 3. Trouble falling or staying asleep, or sleeping too much: not at all 4. Feeling tired or having little energy: not at all 5. Poor appetite or overeating: not at all 6. Feeling bad about yourself - or that you are a failure or have let yourself or your family down: not at all 7. Trouble concentrating on things, such as reading the newspaper or watching television: not at all 8. Moving or speaking so slowly that other people could have noticed. Or the opposite - being so fidgety or restless that you have been moving around a lot more than usual: not at all 9. Thoughts that you would be better off or of hurting yourself in some w ay: not at all Total score: 0 Depression Screening Interpretation: Negative Depression Screening Done: Yes 15291 - PHQ-9 Billing: Yes Source: Developed by Drs. Aldair Isabel, Nitza Loya, Carmelo Colindres and colleagues, with an educational ruby from [employer]. Thrive Questionnaire Date Thrive assessed: 04/24/25 I am a: Patient What is your living situation today?: I have a steady place to live Within the past 12 months, did the food you bought not last and you didn't have the money to get more?: Never true Within the past 12 months, did you worry whether your food would run out before you got money to buy more?: Never true Do you have trouble paying for medicines?: No Do you have trouble getting transportation to medical appointments?: No Do you have trouble paying your heating and electricity bill?: No Do you have trouble taking care of your child, family member or friend?: No Do you have trouble with day-to-day activities such as bathing, preparing meals, shopping, managing finances, etc.?: No Are you currently unemployed and looking for a job?: No Are you interested in more education?: No Please select the resources that you would like help with: None THRIVE Score: 0 AUDIT C Alcohol Use Questionnaire (AUDIT-C) 1. How often do you have a drink containing alcohol?: Never 3. How often do you have six or more drinks on one occasion?: Never Total Score: 0 Score Reviewed/Action Taken: Yes KISHAN-7 AMB Questionnaire KISHAN-7 Date KISHAN - 7 assessed: 02/07/24 Feeling nervous, anxious, or on edge: 0 = Not at all Not being able to stop or control worryin = Not at all Worrying too much about different things: 0 = Not at all Trouble relaxin = Not at all Being so restless that it is hard to sit still: 0 = Not at all Becoming easily annoyed or irritable: 0 = Not at all Feeling afraid as if something awful might happen: 0 = Not at all Total KISHAN-7 score (0-4 normal; 5-9 mild; 10-14 moderate; 15-21 severe): 0 Source: Developed by Drs. Aldair Isabel, Nitza Loya, Carmelo Colindres and colleagues, with an educational ruby from [employer]. KISHAN-7 Assessment Billing KISHAN-7 Assessment Tool: KISHAN-7 Assessment 26239 Review of Systems Const Denies headache(s) Eyes Denies loss of vision ENT Denies vertigo, Denies dizziness, Denies headache(s), Reports neck pain and Denies sore throat Card Denies chest pain, Denies leg edema and Denies lightheadedness Resp Denies cough, Denies hemoptysis and Denies wheezing GI Denies abdominal pain, Denies melena, Denies constipation, Reports heartburn (Depending on what he eats), Denies diarrhea and Denies vomiting Denies dysuria, Denies urinary frequency and Denies urinary urgency Musc Reports back pain, Reports arthralgias (Hands), Denies joint swelling, Reports neck pain, Denies numbness and Denies tingling Neuro Denies Abnormal speech present, Denies behavioral changes, Denies vertigo, Denies dizziness, Denies headache(s), Denies loss of vision, Denies memory loss, Denies numbness and Denies tingling Psych Reports anxiety (Stable on treatment), Denies behavioral changes, Reports depression (Stable on treatment), Denies memory loss and Denies panic attacks Alonzo/Lymph Denies easy bleeding and Denies easy bruising Aller/Immun Denies wheezing Physical exam (Primary Care) Vital Signs: Last Vital Signs Temp 97.1 F 04/24/25 13:32 Pulse 82 04/24/25 13:32 BP 122/88 04/24/25 13:32 Pulse Ox 97 04/24/25 13:32 Oxygen Delivery Method Room Air 04/24/25 13:32 BMI result Body Mass Index 30.0 Tobacco/Smoking Status: Tobacco use Status Tobacco use date assessed 04/24/25 04/24/25 13:34 Patient Tobacco Use Status Never used Tobacco 04/24/25 13:34 Tobacco use type Cigarette 04/24/25 13:34 e-Cigarette/Vaping Use Never Used 04/24/25 13:34 PHQ-9: PHQ-9 Score PHQ-9: Total score 0 05/10/25 01:13 Depression Screening Interpretation: Negative Thrive Assessment: Date of Thrive Assessment Date Thrive assessed 04/24/25 04/24/25 13:34 Const General: healthy appearing, no acute distress, alert and awake Nutritional Appearance: well nourished Orientation/consciousness: oriented to person, oriented to place and oriented to time HENMT Ears: TM's normal bilaterally General nose exam: Normal nasal mucous membranes and turbinates present Eyes Conjunctivae: conjunctivae normal Sclerae: sclerae normal Pupils: Equal, round and reactive pupils present Neck Neck: Yes no lymphadenopathy and Yes no JVD Thyroid: Thyroid normal Carotids: no bruits Resp Effort & Inspection: normal respiratory effort and not tachypneic Auscultation: no crackles, no rales, no rhonchi and no wheezes Cardio Rate: regular rate Rhythm: regular rhythm Heart sounds: S1 normal heart sound present, S2 normal heart sound present, no murmurs and normal S1 and S2 GI Palpation (GI): Soft to palpation, nontender, no hepatomegaly and no splenomegaly Auscultation: normal bowel sounds Back/Spine/Pelvis Cervical Spine: No Cervical spine tenderness Thoracic/Lumbar Spine: No lumbar spinal tenderness Skin General skin exam: no rashes or lesions noted and dry skin Neuro General: oriented to person, oriented to place and oriented to time Cranial nerves: Yes Equal, round and reactive pupils present Speech: No Abnormal speech present Gait exam (Neuro): Normal gait present Motor exam (neuro): no tremor noted Extrem Right upper extremity: full ROM Left upper extremity: full ROM Right lower extremity: full ROM; no edema Left lower extremity: full ROM; no edema Psych Mental Status: mental status grossly normal Speech and movement: Normal speech and movement present Affect: normal affect Attitude: cooperative Thought process: Normal thought process present Coding Level of Care Code Est Pt Level 4 (04594) Diagnoses Anxiety F41.9 Hypertension, unspecified type I10 Hypertension type: unspecified Hyperlipidemia, unspecified hyperlipidemia type E78.5 Hyperlipidemia type: unspecified Depression, unspecified depression type F32.A Depression Type: unspecified Benign prostatic hyperplasia, unspecified whether lower urinary tract symptoms present N40.0 Lower urinary tract symptom presence: unspecified whether lower urinary tract symptoms present Gastroesophageal reflux disease, unspecified whether esophagitis present K21.9 Esophagitis presence: esophagitis presence not specified Additional Codes KISHAN-7 Assessment Billing - KISHAN-7 Assessment Tool: KISHAN-7 Assessment 79455 ([id number]) PHQ-9 - 60547 - PHQ-9 Billing: Yes ([id number]) Time Spent (min) 39 Assessment & Plan Assessment & Plan (1) Anxiety: Code(s): F41.9 - Anxiety disorder, unspecified Category: Medical (2) Hypertension: Code(s): I10 - Essential (primary) hypertension Category: Medical Qualifiers: Hypertension type: unspecified Qualified Code(s): I10 - Essential (primary) hypertension (3) Hyperlipidemia: Code(s): E78.5 - Hyperlipidemia, unspecified Category: Medical Qualifiers: Hyperlipidemia type: unspecified Qualified Code(s): E78.5 - Hyperlipidemia, unspecified (4) Depression: Code(s): F32.A - Depression, unspecified Category: Medical Qualifiers: Depression Type: unspecified Qualified Code(s): F32.A - Depression, unspecified (5) BPH (benign prostatic hyperplasia): Code(s): N40.0 - Benign prostatic hyperplasia without lower urinary tract symptoms Category: Medical Qualifiers: Lower urinary tract symptom presence: unspecified whether lower urinary tract symptoms present Qualified Code(s): N40.0 - Benign prostatic hyperplasia without lower urinary tract symptoms (6) GERD (gastroesophageal reflux disease): Code(s): K21.9 - Gastro-esophageal reflux disease without esophagitis Category: Medical Qualifiers: Esophagitis presence: esophagitis presence not specified Qualified Code(s): K21.9 - Gastro-esophageal reflux disease without esophagitis Plan The patient will continue with regular follow-up visits every four months to monitor his chronic conditions, including diabetes mellitus and hyperlipidemia. Lab tests will be preordered before each visit to ensure timely review of his health status. For diabetes management, the current regimen appears effective, with A1c levels at 7.2%, and no changes are recommended at this time. For hyperlipidemia, the patient will continue his current management plan, as recent lab results indicate stability. The patient is advised to maintain a healthy diet and exercise routine to support cardiovascular health. For benign prostatic hyperplasia, no immediate interventions are necessary unless symptoms worsen. For gastroesophageal reflux disease, dietary modifications and avoiding lying down after meals are recommended to manage symptoms effectively. Patient was informed and verbally consented to the use of an ambient scribe for clinic note documentation during this visit. Orders: Orders Complete Blood Count Auto Diff 04/24/25 F41.9 - Anxiety disorder, unspecified, I10 - Essential (primary) hypertension, E78.5 - Hyperlipidemia, unspecified, E66.9 - Obesity, unspecified Comprehensive [place]. Panel Fast 04/24/25 F41.9 - Anxiety disorder, unspecified, I10 - Essential (primary) hypertension, E78.5 - Hyperlipidemia, unspecified, E66.9 - Obesity, unspecified Lipid Panel 04/24/25 F41.9 - Anxiety disorder, unspecified, I10 - Essential (primary) hypertension, E78.5 - Hyperlipidemia, unspecified, E66.9 - Obesity, unspecified Vitamin D 25-OH Total 04/24/25 F41.9 - Anxiety disorder, unspecified, I10 - Es sential (primary) hypertension, E78.5 - Hyperlipidemia, unspecified, E66.9 - Obesity, unspecified TSH reflex Free T4 04/24/25 F41.9 - Anxiety disorder, unspecified, I10 - Es sential (primary) hypertension, E78.5 - Hyperlipidemia, unspecified, E66.9 - Obesity, unspecified UA CC w/rflx Micro + Cult 04/24/25 F41.9 - Anxiety disorder, unspecified, I10 - Essential (primary) hypertension, E78.5 - Hyperlipidemia, unspecified, E66.9 - Obesity, unspecified Medications: Changed From citalopram 1 tab in am and .5 tab in pm PO 2 times a day; 135 tabs 1RF To citalopram (Celexa) 1 tab in am and .5 tab in pm PO 2 times a day; 135 tabs 1RF Refilled losartan 50 mg PO DAILY 90 tabs 3RF atorvastatin 10 mg PO DAILY 90 tabs 8RF clonazepam 0.5 mg PO BID 60 tabs 0RF 30 days hydrochlorothiazide 25 mg PO DAILY 90 tabs 3RF 90 days
--- OUTSIDE RECORDS SUMMARY | 2025-04-24 13:59 | XMS_ITS | Patient Health Record ---
Author Organization [facility] Address [address] [place] [address] Care Team Providers Care Hay Chopper Name Role Phone Mike Lewis MD Primary Care Provider Aldair Mcclain Unavailable [phone] Reason For Referral No Information Medications Medication SIG (Take, Route, Frequency, Duration) Notes Start Date End Date Status Folic Acid 400 MCG 1 tablet Orally Once a day Active Aspir-81 81 MG 1 tablet Orally Once a day Active Multi Vitamin/Minerals 1 1 Orally QD Active CoQ10 100 MG 1 capsule with a ishan l Orally Once a day Active Calcium 250 MG Orally Activ e Losartan Potassium 50 MG 1 Orally QD Active Vitamin D 1000 UNIT 1 tablet Orally Once a day Active Atorvastatin Calcium 10 MG 1 tablet Oral ly Once a day Active Metoprolol Tartrate 25 MG 1/2 tablet Ora lly Twice a day Active Warfarin Sodium 5 MG 1 tablet Orally Onc e a day Active clonazePAM 0.5 MG 1 tablet Orally Twic e a day Active Citalopram Hydrobromide 40 MG 1/2 tablet Orally twice a day Active Problems Problem Type SNOMED Code ICD Code Onset Dates Problem Status W/U Status Risk Notes Problem Constipation (44466996) Constipation (564.00) Active confirmed Problem Colon cancer screening (643943395) Colon cancer screening (V76.51) Active confirmed Problem History of polyp of colon (089153626) H/O adenomatous polyp of colon (V12.72) Active confirmed Problem Long-term current use of anticoagulant (714950930) long-term current use of anticoagulant (V58.61) Active confirmed Plan Of Treatment Future Test Test Name Order Date COLONOSCOPY 02/27/2015 Insurance Providers Payer Name Payer Address Payer Phone Subscriber Number Group Number Insured Name Patient Relationship to Insured Coverage Start Date Coverage End Date MEDICARE OF [place] [address] [place] [id number] [id number] [id number] Self - patient is the insured [employer] CLAIMS [address] [place] [address] [id number] Self - patient is the insured Medical (General) History Medical History History ICD Code Tubular adenomas-removed in and 2009--had a neg. colonoscopy in [address] Thurman---colonoscopy 05-06-2010 neg except for a small tubular adnoma Depression Anxiety Atrial fibrillation HTN Denies CT,DM,CVA,Lung disease,renal dise ase Hyperlipidemia Surgical History Surgery Date(Month/Year) hernia repair--left inguinal lipoma removed from abdominal wall
== END 2025-04-24 14:20 | disposition home or self-care (01) ==
LOC: HO.HMCH 13:24
DX: F41.9 Anxiety disorder, unspecified (principal); I10 Essential (primary) hypertension; E78.5 Hyperlipidemia, unspecified; F32.A Depression, unspecified; N40.0 Benign prostatic hyperplasia without lower urinary tract symptoms; K21.9 Gastro-esophageal reflux disease without esophagitis

== ENCOUNTER → 2025-04-24 13:24 | Outpatient (BNVA) | payer MEDICARE, SELFPAY | DX: F41.9 Anxiety disorder, unspecified (principal); I10 Essential (primary) hypertension; E78.5 Hyperlipidemia, unspecified; F32.A Depression, unspecified; N40.0 Benign prostatic hyperplasia without lower urinary tract symptoms; K21.9 Gastro-esophageal reflux disease without esophagitis | CPT/HCPCS: 96127; 99212 ==